=== PATIENT | female | born 1980 | race Caucasian/White ===

== ENCOUNTER 2018-03-20 21:10 | Emergency (ER) | payer SELFPAY ==
[~2018-03-20 21:10] MED LIST: LABE100T2 PO
[2018-03-20] MEDS ORDERED: IOHEXOL 350 MG/ML 10 ML VIAL (for RAD DIAG) IVCONTRAST ONE (21:11)
[2018-03-20 21:47] VITALS: BP 149/113; PULSE 125; RESP 18; TEMP 98.9; O2SAT 99
[2018-03-20] MEDS ORDERED: SODIUM CHLORIDE 0.9% FLUSH 10 ML FLUSH IV FLUSH PRN (23:00)
[2018-03-21] MEDS ORDERED: SODIUM CHLOR 0.9% 1000 ML INJ 1,000 ML IV SCH (00:17)
[2018-03-21] MEDS ORDERED: SODIUM CHLORIDE 0.9% FLUSH 10 ML FLUSH IV FLUSH PRN (00:30)
[2018-03-21] MEDS ORDERED: METOCLOPRAMIDE HCL 10 MG/2 ML VIAL IV PUSH ONE (00:30)
[2018-03-21] MEDS ORDERED: HYDROmorphone HCL PF 2 MG/ML VIAL IV PUSH ONE (00:30)
[2018-03-21 00:41] LABS: AUTOMATED NEUTROPHIL # 8.5 TH/MM3 (1.8-7.7); BASOPHIL # 0.1 TH/MM3 (0-0.2); BASOPHIL % 0.9 % (0.0-2.0); EOSINOPHIL # 0.1 TH/MM3 (0-0.4); EOSINOPHIL % 0.7 % (0.0-4.0); HEMATOCRIT 43.7 % (35.0-46.0); LYMPH % 18.9 % (9.0-44.0); LYMPHOCYTE # 2.1 TH/MM3 (1.0-4.8); MEAN CORPUSCULAR HEMOGLOBIN 26.7 PG (27.0-34.0); MEAN CORPUSCULAR HGB CONC 32.2 % (32.0-36.0); MEAN PLATELET VOLUME 7.7 FL (7.0-11.0); MONO % 4.2 % (0.0-8.0); MONOCYTE # 0.5 TH/MM3 (0-0.9); NEUT % 75.3 % (16.0-70.0); PLATELET COUNT 455 TH/MM3 (150-450); RED BLOOD COUNT 5.26 MIL/MM3 (4.00-5.30); RED CELL DISTRIBUTION WIDTH 13.8 % (11.6-17.2); WHITE BLOOD COUNT 11.3 TH/MM3 (4.0-11.0)
[2018-03-21 01:07] LABS: ALBUMIN 3.9 GM/DL (3.4-5.0); ALT (GPT) 28 U/L (10-53); AST (GOT) 13 U/L (15-37); BLOOD UREA NITROGEN 14 MG/DL (7-18); CALCIUM 8.8 MG/DL (8.5-10.1); CHLORIDE 103 MEQ/L (98-107); CREATININE 0.81 MG/DL (0.50-1.00); GLOMERULAR FILTRATION RATE 80 ML/MIN (>89); GLUCOSE,RANDOM 107 MG/DL (74-106); SODIUM (NA) 140 MEQ/L (136-145)
[2018-03-21 01:09] LABS: ALKALINE PHOSPHATASE 126 U/L (45-117); TOTAL BILIRUBIN ADULT 0.2 MG/DL (0.2-1.0); TOTAL PROTEIN 8.2 GM/DL (6.4-8.2)
--- NOTE | 2018-03-21 01:16 | RADRPT ---
EXAM DATE: 03/21/2018 1:11 AM EDT AGE/SEX: 37 years / Female INDICATIONS: Abdominal pain. CLINICAL DATA: This is the patient's initial encounter. Patient reports that signs and/or symptoms h ave been present for 1 day and indicates a pain score of 4/10. MEDICAL/SURGICAL HISTORY: . Abdominal pain. section. COMPARISON: No prior [facility] exams available for comparison MEASUREMENTS (cm x cm x cm): Liver:__ 19.2 cm length Common Bile Duct:__ 5mm FINDINGS: Liver: Coarse echotexture suggesting fatty change or diffuse hepatocellular process. Portal Vein: Hepatopedal flow seen in portal vein. Common Duct: No intraluminal mass or stone visualized. Gallbladder: Demonstrates no wall thickening or pericholecystic fluid. No stones visualized. Pancreas: Not well visualized. Right Kidney: No mass or hydronephrosis Other: None. CONCLUSION: Coarsened liver echotexture consistent with diffuse processes such as hepatic steatosis. Electronically signed by: Herrera Peña MD 03/21/2018 1:15 AM EDT
[2018-03-21 01:52] VITALS: BP 151/87; PULSE 98; RESP 18; O2SAT 99
[2018-03-21 02:14] LABS: BACTERIA, URINE RARE /hpf; BILIRUBIN, URINE NEG (NEG); BLOOD, URINE NEG (NEG); GLUCOSE,URINE NEG (NEG); KETONE, URINE NEG (NEG); NITRITE,URINE NEG (NEG); PH, URINE 6.5 (5.0-8.5); SQUAMOUS EPITHELIAL CELL URINE 4 /hpf (0-5); URINE COLOR YELLOW (YELLW/STRAW); URINE LEUKOCYTE ESTERASE TRACE (NEG)
--- NOTE | 2018-03-21 02:59 | RADRPT ---
EXAM DATE: 03/21/2018 2:13 AM EDT AGE/SEX: 37 years / Female INDICATIONS: Right upper quadrant pain. CLINICAL DATA: This is the patient's initial encounter. Patient reports that signs and symptoms have been present for 1 day and indicates a pain score of 9/10. MEDICAL/SURGICAL HISTORY: Hypertension. section. Tubal ORAL CONTRAST: No oral contrast ingested. RADIATION DOSE: 21.45 CTDI (mGy) ; Patient body habitus COMPARISON: [facility], CT ABDOMEN & PELVIS W CONTRAST, 11/19/2011. . TECHNIQUE: Multiple contiguous axial images were obtained through the abdomen and pelvis following b olus infusion of 95 ml Omnipaque 350 (iohexol) nonionic water-soluble contrast as a single exam dos e. No oral contrast ingested. Using automated exposure control and adjustment of the mA and/or kV ac cording to patient size, the radiation dose was kept as low as reasonably achievable to obtain optima l diagnostic quality images. FINDINGS: Lower Lungs: There is minimal linear atelectasis seen at the lung bases. Liver: There is minimal decreased density seen throughout the liver. No focal hepatic lesions are see n. The gallbladder is unremarkable. Spleen: Homogeneous density without enlargement. Pancreas: Unremarkable without mass or calcification. Kidneys: Normal in size and shape. No evidence of mass or hydronephrosis. Adrenal Glands: Unremarkable. Aorta: The aorta and proximal iliac vessels are grossly unremarkable without aneurysmal dilation. Bowel/Mesentery: The bowel loops are grossly unremarkable. The cecum and sigmoid colon have a normal configuration. The appendix appears normal. Abdominal Wall: Intact. Retroperitoneum: No evidence of adenopathy in the retrocrural, para-aortic, or deep pelvic regions. Bladder: Contours are smooth. Reproductive Organs: There is a oval 1.5 cm ringlike area of enhancement seen at the lateral aspect of the right ovary likely related to a collapsing follicle. Free fluid is not seen. Inguinal: The inguinal region is unremarkable without evidence of adenopathy. Bony Structures: Unremarkable. CONCLUSION: 1. Suspected collapsing follicle right ovary. 2. Minimal hepatic steatosis. Electronically signed by: Herrera Peña MD 03/21/2018 2:58 AM EDT
[2018-03-21] MEDS ORDERED: ZOFR4TAB3 SL (03:12)
[2018-03-21] MEDS ORDERED: IBUP1TAB7 PO (03:12)
[2018-03-21] MEDS ORDERED: PERC5TAB12 PO (03:12)
--- NOTE | 2018-03-21 03:14 | PD ---
HPI Chief Complaint: Abdominal Pain Time Seen by Provider: 00:17 Travel History International Travel<30 days: No Contact w/Intl Traveler<30days: No Traveled to known affect area: No History of Present Illness HPI 37-year-old female presents to the emergency department stating I have gallbladder problems. Patient denies eating fried or fatty foods for dinner. Patient states symptoms have not worsened since 9 PM. Patient has had vomiting without hematemesis or coffee-ground emesis. Patient complains of localizing right upper quadrant abdominal pain. Patient denies . Last period was approximately 2-1/2 weeks to 3 weeks ago and normal for her. No report of vaginal discharge vaginal bleeding also no dysuria frequency urgency flank pain or hematuria. Patient denies anorexia. Patient states that she has had imaging studies of the gallbladder and identified to have sludge and was placed to have her gallbladder removed a few years ago but never did so. The patient rates her pain 10/10 in intensity. Patient identifies that she cannot narrow down exacerbating or alleviating factors. PFSH Past Medical History Cardiovascular Problems: No Diabetes: No Patient Takes Glucophage: No Diminished Hearing: No Hepatitis: No Hiatal Hernia: No Hypertension: Yes Respiratory: No Immunizations Current: Yes Migraines: Yes Tetanus Vaccination: < 5 Years Influenza Vaccination: Yes ?: Not LMP: 03/02/18 : 5 Para: 2 Miscarriage: 2 : 0 Dilation and Curettage (D&C): Yes Tubal Ligation: Yes (10/2012) Past Surgical History Section: Yes (x3) Gynecologic Surgery: Yes ( D & C) Other Surgery: Yes Social History Alcohol Use: No Tobacco Use: No Substance Use: No Allergies-Medications (Allergen,Severity, Reaction): Coded Allergies: alprazolam (Unverified Allergy, Severe, Hives, swelling, 03/20/18) amoxicillin (Unverified Allergy, Severe, Hives, 03/20/18) erythromycin base (Unverified Allergy, Severe, HIVES, 03/20/18) latex (Unverified Allergy, Severe, HIVES, 03/20/18) lorazepam (Verified Allergy, Unknown, 03/20/18) Reported Meds & Prescriptions Reported Meds & Active Scripts Active Percocet (Oxycodone-Acetaminophen) 5-325 mg Tab 1 Tab PO Q6H PRN Zofran Odt (Ondansetron Odt) 4 Mg Tab 4 Mg SL Q6HR PRN Ibuprofen 800 Mg Tab 800 Mg PO Q8H PRN Physical Exam Narrative GENERAL: Well-developed well-nourished morbidly obese female in obvious discomfort holding her right upper quadrant SKIN: Warm and dry. HEAD: Normocephalic. EYES: No scleral icterus. No injection or drainage. NECK: Supple, trachea midline. No JVD or lymphadenopathy. CARDIOVASCULAR: Regular rate and rhythm without murmurs, gallops, or rubs. RESPIRATORY: Breath sounds equal bilaterally. No accessory muscle use. GASTROINTESTINAL: Abdomen soft, reproducible right upper quadrant tenderness to palpation without guarding or rebound no clinical Young sign, nondistended. Body habitus somewhat obscures exam due to marked size of abdomen. MUSCULOSKELETAL: No cyanosis, or edema. BACK: Nontender without obvious deformity. No CVA tenderness. Data Data Last Documented VS Vital Signs Date Time Temp Pulse Resp B/P (MAP) Pulse Ox O2 Delivery O2 Flow Rate FiO2 03/21/18 03:19 03/21/18 01:52 98 18 99 Room Air 03/20/18 21:47 98.9 Orders Orders Complete Blood Count With Diff (03/20/18 22:53) Comprehensive Metabolic Panel (03/20/18 22:53) Lipase (03/20/18 22:53) Urinalysis - C+S If Indicated (03/20/18 22:53) Iv Access Insert/Monitor (03/20/18 22:53) Sodium Chloride 0.9% Flush (Ns Flush) (03/20/18 23:00) Lipase (03/21/18 00:17) Lactic Acid (03/21/18 00:17) Us Abdomen Gallbladder (03/21/18 ) Ecg Monitoring (03/21/18 00:17) Oximetry (03/21/18 00:17) Sodium Chlor 0.9% 1000 Ml Inj (Ns 1000 M (03/21/18 00:17) Sodium Chloride 0.9% Flush (Ns Flush) (03/21/18 00:30) Ed Urine Pregnancytest Poc (03/21/18 00:17) Hydromorphone Pf Inj (Dilaudid Pf Inj) (03/21/18 00:30) Metoclopramide Inj (Reglan Inj) (03/21/18 00:30) Ct Abd/Pel W Iv Contrast(Rout) (03/21/18 ) Iohexol 350 Inj (Omnipaque 350 Inj) (03/20/18 21:11) Ed Discharge Order (03/21/18 03:21) Labs Laboratory Tests Test 03/20/18 23:25 03/21/18 00:32 03/21/18 01:49 White Blood Count 11.3 TH/MM3 Red Blood Count 5.26 MIL/MM3 Hemoglobin 14.0 GM/DL Hematocrit 43.7 % Mean Corpuscular Volume 83.0 FL Mean Corpuscular Hemoglobin 26.7 PG Mean Corpuscular Hemoglobin Concent 32.2 % Red Cell Distribution Width 13.8 % Platelet Count 455 TH/MM3 Mean Platelet Volume 7.7 FL Neutrophils (%) (Auto) 75.3 % Lymphocytes (%) (Auto) 18.9 % Monocytes (%) (Auto) 4.2 % Eosinophils (%) (Auto) 0.7 % Basophils (%) (Auto) 0.9 % Neutrophils # (Auto) 8.5 TH/MM3 Lymphocytes # (Auto) 2.1 TH/MM3 Monocytes # (Auto) 0.5 TH/MM3 Eosinophils # (Auto) 0.1 TH/MM3 Basophils # (Auto) 0.1 TH/MM3 CBC Comment DIFF FINAL Differential Comment Blood Urea Nitrogen 14 MG/DL Creatinine 0.81 MG/DL Random Glucose 107 MG/DL Total Protein 8.2 GM/DL Albumin 3.9 GM/DL Calcium Level 8.8 MG/DL Alkaline Phosphatase 126 U/L Aspartate Amino Transf (AST/SGOT) 13 U/L Alanine Aminotransferase (ALT/SGPT) 28 U/L Total Bilirubin 0.2 MG/DL Sodium Level 140 MEQ/L Potassium Level 3.7 MEQ/L Chloride Level 103 MEQ/L Carbon Dioxide Level 24.0 MEQ/L Anion Gap 13 MEQ/L Estimat Glomerular Filtration Rate 80 ML/MIN Lipase 126 U/L 121 U/L Lactic Acid Level 0.9 mmol/L Urine Color YELLOW Urine Turbidity CLEAR Urine pH 6.5 Urine Specific Reese 1.017 Urine Protein NEG mg/dL Urine Glucose (UA) NEG mg/dL Urine Ketones NEG mg/dL Urine Occult Blood NEG Urine Nitrite NEG Urine Bilirubin NEG Urine Urobilinogen LESS THAN 2.0 MG/DL Urine Leukocyte Esterase TRACE Urine RBC LESS THAN 1 /hpf Urine WBC 1 /hpf Urine Squamous Epithelial Cells 4 /hpf Urine Bacteria RARE /hpf Microscopic Urinalysis Comment CULT NOT INDICATED MDM Medical Decision Making Medical Screen Exam Complete: Yes Emergency Medical Condition: Yes Medical Record Reviewed: Yes Interpretation(s) Last Impressions Gall Bladder Ultrasound 03/21/18 0000 Signed Impressions: CONCLUSION: Coarsened liver echotexture consistent with diffuse processes such as hepatic s teatosis. Abdomen/Pelvis CT 03/21/18 0000 Signed Impressions: CONCLUSION: 1. Suspected collapsing follicle right ovary. 2. Minimal hepatic steatosis. CBC & BMP Diagram 03/20/18 23:25 Total Protein 8.2, Albumin 3.9, Calcium Level 8.8, Alkaline Phosphatase 126 H, Aspartate Amino Transf (AST/SGOT) 13 L, Alanine Aminotransferase (ALT/SGPT) 28, Total Bilirubin 0.2 Vital Signs Date Time Temp Pulse Resp B/P (MAP) Pulse Ox O2 Delivery O2 Flow Rate FiO2 03/21/18 01:52 98 18 151/87 (108) 99 Room Air 03/20/18 21:47 98.9 125 18 149/113 (125) 99 poc hc: negative Differential Diagnosis Abdominal pain right upper quadrant, biliary colic, acute cholecystitis, peptic ulcer disease, pancreatitis, atypical appendicitis, ruptured ovarian cyst, ectopic , renal colic, also to consider ovarian torsion, Bruce-Oleg Benito Narrative Course Patient with severe abdominal pain with episode of nausea vomiting localized the right upper quadrant IV access obtained patient given Dilaudid 1 fluid bolus and imaging study ultrasound ordered Lab values found to be in normal range ultrasound identifies, gallbladder patient continues to complain of some pain but on exam has no localizing point tenderness however we will proceed with CT is collapsing right ovarian cyst 1.5 cm no free fluid and remainder of exam is unremarkable Patient is comfortable and stable for outpatient management and 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 Diagnosis Primary Impression: Right upper quadrant abdominal pain Additional Impression: Ovarian cyst Referrals: Industrial Refrig[employer] Mechanic call for appointment Primary Care Physician 2 days Patient Instructions: General Instructions Additional Instructions: Increase fluid hydration Follow-up with primary care provider/[employer]OR Take pain medication as prescribed as needed Take ibuprofen 800 mg as often as every 8 hours as needed for pain Associates inflammation Return the emergency department for any concerns or change in condition Med/Other Pt SpecificInfo: Prescription(s) given Scripts Oxycodone-Acetaminophen (Percocet) 5-325 mg Tab 1 TAB PO Q6H Y for PAIN, #5 TAB 0 Refills Prov: Shauna Young MD 03/21/18 Ondansetron Odt (Zofran Odt) 4 Mg Tab 4 MG SL Q6HR Y for Nausea/Vomiting, #10 TAB 0 Refills Prov: Shauna Young MD 03/21/18 Ibuprofen (Ibuprofen) 800 Mg Tab 800 MG PO Q8H Y for PAIN GREATER THAN 5, #12 TAB 0 Refills Prov: Shauna Young MD 03/21/18 Disposition: 01 DISCHARGE HOME Condition: Stable Shauna Young MD Mar 21, 2018 03:14
== END 2018-03-21 03:34 | disposition home or self-care (01) ==
LOC: NEPC 21:10
DX: R10.11 Right upper quadrant pain (principal); N83.201 Unspecified ovarian cyst, right side; K76.0 Fatty (change of) liver, not elsewhere classified
CPT/HCPCS: 74177; 76705; 80053; 81001; 83605; 83690; 84703; 85025; 96361; 96374; 99285; J1170; J2765; J7030; Q9967